=== PATIENT | female | born 1955 | race Asian ===

== ENCOUNTER 2021-03-16 15:47 | Inpatient (IN) | payer BC ==
[~2021-03-16] VITALS: Ht 165.1 cm; Wt 76.7 kg
[2021-03-16 16:37] VITALS: BP 153/73; TEMP 97.7; Ht 165.1 cm; Wt 76.7 kg
[2021-03-16 20:00] VITALS: BP 171/87; TEMP 98.7
[2021-03-17 20:19] VITALS: BP 119/67; TEMP 98.9
[2021-03-18 08:00] VITALS: BP 125/73; BP 77/40; TEMP 98.6; TEMP 98.8
[2021-03-19 17:13] LABS: PLATELET COUNT 194 K/uL (152-353)
[2021-03-19 17:27] LABS: POTASSIUM 4.8 mmol/L (3.6-5.2)
[2021-03-19 19:59] VITALS: BP 116/56; TEMP 97.9
== END 2021-03-19 17:49 | disposition expired | DRG 949 ==
LOC: MED/SURG 15:47
PROVIDERS: ADMIT Internal Medicine; ATTEND Internal Medicine
DX: Z48.815 Encounter for surgical aftercare following surgery on the digestive system (principal); C18.6 Malignant neoplasm of descending colon; Z90.49 Acquired absence of other specified parts of digestive tract; R56.9 Unspecified convulsions; R53.81 Other malaise; M62.81 Muscle weakness (generalized); R26.81 Unsteadiness on feet; Z74.1 Need for assistance with personal care; D64.9 Anemia, unspecified; N17.9 Acute kidney failure, unspecified; I10 Essential (primary) hypertension; F32.9 Major depressive disorder, single episode, unspecified; D72.829 Elevated white blood cell count, unspecified; E87.6 Hypokalemia; R33.9 Retention of urine, unspecified
CPT/HCPCS: 31500; 80053; 82550; 84484; 85027; 87081; 92950; 94002; J0171; J0461; J3490